=== PATIENT | female | born 1980 | race Two or more races ===

== ENCOUNTER 2017-04-28 00:19 | Emergency (ER) | payer OTHER ==
[~2017-04-28] VITALS: Ht 175.3 cm; Wt 86.2 kg
--- NOTE | 2017-04-28 01:10 | NUR ---
TO BED 4 A 28 YO FEMALE BIBSELF W C/O "EPIGASTRIC PAIN SINCE 2199." DENIES N/V/D. PATIENT IS AAOX4, NAD NOTED. VSS. NONDIAPHORETIC. GOWNED. COMFORT MEASURES RENDERED. AWAITING FOR ER MD SWANSON.
--- NOTE | 2017-04-28 01:20 | NUR ---
STARTED A SALINE LOCK ON THE RAC G20, BLOOD DRAWN AND SENT TO LAB.
[2017-04-28] MEDS ORDERED: ONDANSETRON HCL/PF 4 MG/2 ML VIAL ONE (01:26)
[2017-04-28] MEDS ORDERED: MORPHINE SULFATE INJ 4 MG/ML DISP.SYRIN ONE (01:27)
[2017-04-28] MEDS ORDERED: IV NS 0.9% 1,000 ML BAG IV ONE (01:30)
[2017-04-28] MEDS ORDERED: MORPHINE SULFATE INJ 2 MG/ML DISP.SYRIN IV ONE (01:30)
[2017-04-28] MEDS ORDERED: ONDANSETRON HCL/PF 4 MG/2 ML VIAL IVP ONE (01:30)
[2017-04-28 01:44] LABS: APPEARANCE,URINE CLEAR (CLEAR); BILIRUBIN,URINE NEGATIVE (NEGATIVE); BLOOD, URINE TRACE-INTA Ery/uL (NEGATIVE); COLOR,URINE YELLOW (YELLOW); KETONES,URINE NEGATIVE (NEGATIVE); LEUKOCYTE ESTERASE ,URINE NEGATIVE (NEGATIVE); NITRITE, URINE NEGATIVE (NEGATIVE); PROTEIN,URINE NEGATIVE (NEGATIVE); UGLUCOSE NEGATIVE (NEGATIVE); UROBILINOGEN,URINE 0.2 EU/dL (0.2)
[2017-04-28 01:54] LABS: CALCIUM, SERUM 9.3 mg/dL (8.5-10.1); CARBON DIOXIDE 29 mmol/L (21-32); CHLORIDE 105 mmol/L (98-107); CREATININE 0.7 mg/dL (0.6-1.3); GLUCOSE 93 mg/dL (74-106); POTASSIUM 3.6 mmol/L (3.5-5.1); SODIUM SERUM 141 mmol/L (136-145); UREA NITROGEN, BLOOD 12 mg/dL (7-18)
[2017-04-28 01:57] LABS: INR 0.96 (0.87-1.13); PROTHROMBIN TIME 10.3 SECS (9.5-12.7)
[2017-04-28 01:58] LABS: ALANINE AMINOTRANSFERASE 18 U/L (12-78); ALKALINE PHOSPHATASE 82 U/L (46-116); ASPARTATE AMINOTRANSFERASE 9 U/L (15-37); BILIRUBIN,TOTAL 0.1 mg/dL (0.2-1.0); LIPASE 140 U/L (73-393)
[2017-04-28 01:58] LABS: BACTERIA,URINE None seen /HPF (None Seen); RBC,URINE 0-2 /HPF (0-2); SQUAMOUS EPITHELIAL CELL,UR Few /HPF (None Seen); WBC,URINE 0-2 /HPF (0-3)
[2017-04-28 02:00] LABS: TROPONIN I < 0.017 ng/mL (0.00-0.056)
[2017-04-28 02:04] LABS: BASOPHILS # (AUTO) 0.1 /CMM (0.0-0.2); BASOPHILS % (AUTO) 0.4 % (0.0-2.0); EOSINOPHILS # (AUTO) 0.3 /CMM (0.0-0.7); EOSINOPHILS % (AUTO) 2.2 % (0.0-6.0); HEMATOCRIT 42 % (33-45); HEMOGLOBIN 13.8 g/dL (11.5-14.8); LYMPHOCYTES # (AUTO) 5.7 /CMM (0.8-4.8); LYMPHOCYTES % (AUTO) 37.6 % (20.0-44.0); MEAN CORPUSCULAR HEMOGLOBIN 29 PG (26.0-33.0); MEAN CORPUSCULAR HGB CONC 33 g/dl (31.0-36.0); MEAN CORPUSCULAR VOLUME 88 fL (82-100); MONOCYTES # (AUTO) 0.9 /CMM (0.1-1.30); MONOCYTES % (AUTO) 5.9 % (2.0-12.0); NEUTROPHILS # (AUTO) 8.2 /CMM (1.8-8.9); NEUTROPHILS % (AUTO) 53.9 % (43.0-81.0); PLATELET COUNT (AUTO) 443 /CMM (150-450); RDW COEFFICIENT OF VARIATION 13.9 (11.5-15.0); RED BLOOD CELL COUNT(AUTO) 4.73 MIL/uL (4.0-5.2); WHITE BLOOD COUNT (AUTO) 15.2 K/uL (4.3-11.0)
--- NOTE | 2017-04-28 02:42 | NUR ---
ONGOING LILLIAN AT BEDSIDE.
--- NOTE | 2017-04-28 03:17 | NUR ---
patient reports relief from pain. IV removed. Catheter intact and site benign. Pressure and 4x4 applied to site. No bleeding noted. Patient discharged to home in stable condition. Written and verbal after care instructions given. Patient verbalizes understanding of instruction. Instructed not to drive, family at bedside to take patient home. No further complaints.
[2017-04-28 03:18] VITALS: BP 138/90
== END 2017-04-28 03:18 | disposition home or self-care (01) ==
LOC: ER 00:24
DX: K21.9 Gastro-esophageal reflux disease without esophagitis (principal)
CPT/HCPCS: 36415; 76705; 80048; 80076; 81001; 83690; 84484; 84703; 85025; 85730; 93005; 96361; 96374; 96375; 99285; A4606; J2270; J2405; J7030; Z7610; 81000-TC

== ENCOUNTER 2020-03-09 05:13 | Inpatient (IN) | payer OTHER ==
[~2020-03-09] VITALS: Ht 175.3 cm; Wt 83.9 kg
--- NOTE | 2020-03-09 05:36 | NUR ---
PT BIBSELF C/O BACK PAIN RADIATING TO LLQ ABD PAIN X 2 HRS SHIP RUNNER. PT STATES HX KIDNEY STONES. PT AOX4 RR EVEN AND UNLABORED. NO SOB NOTED. NO NVD AT THIS TIME. PT PLACED ON MONITOR WAITING FOR MD SWANSON. BLOOD WORK/UA COLLECTED. SENT TO LAB
[2020-03-09] MEDS ORDERED: KETOROLAC TROMETHAMINE 15 MG/ML VIAL ONE (05:47)
[2020-03-09] MEDS ORDERED: KETOROLAC TROMETHAMINE INJ 30 MG/ML VIAL IV ONE (06:00)
[2020-03-09] MEDS ORDERED: IV NS 0.9% 1,000 ML BAG IV ONE (06:00)
[2020-03-09 06:01] LABS: APPEARANCE,URINE SL CLOUDY (CLEAR); BILIRUBIN,URINE NEGATIVE (NEGATIVE); BLOOD, URINE LARGE Ery/uL (NEGATIVE); COLOR,URINE YELLOW (YELLOW); KETONES,URINE 15 (NEGATIVE); LEUKOCYTE ESTERASE ,URINE SMALL (NEGATIVE); NITRITE, URINE NEGATIVE (NEGATIVE); PH,URINE 7.5 (5.0-8.0); PROTEIN,URINE 30 mg/dl (NEGATIVE); UGLUCOSE NEGATIVE (NEGATIVE); UROBILINOGEN,URINE 0.2 EU/dL (0.2)
[2020-03-09 06:02] LABS: BASOPHILS % (AUTO) 0.2 % (0.0-2.0); EOSINOPHILS % (AUTO) 0.2 % (0.0-6.0); HEMATOCRIT 40 % (33-45); HEMOGLOBIN 13.3 g/dL (11.5-14.8); LYMPHOCYTES # (AUTO) 2.7 /CMM (0.8-4.8); LYMPHOCYTES % (AUTO) 14.1 % (20.0-44.0); MEAN CORPUSCULAR HGB CONC 34 g/dl (31.0-36.0); MEAN CORPUSCULAR VOLUME 88 fL (82-100); NEUTROPHILS # (AUTO) 15.5 /CMM (1.8-8.9); NEUTROPHILS % (AUTO) 80.5 % (43.0-81.0); PLATELET COUNT (AUTO) 458 /CMM (150-450); RED BLOOD CELL COUNT(AUTO) 4.52 MIL/uL (4.0-5.2); WHITE BLOOD COUNT (AUTO) 19.2 K/uL (4.3-11.0)
--- NOTE | 2020-03-09 06:07 | NUR ---
DR. ECKERT AT BEDSIDE FOR EVAL.
[2020-03-09] MEDS ORDERED: MORPHINE SULFATE INJ 4 MG/ML DISP.SYRIN ONE ×3 (06:15→08:52)
[2020-03-09] MEDS ORDERED: ONDANSETRON HCL/PF 4 MG/2 ML VIAL ONE (06:17)
[2020-03-09] MEDS ORDERED: MORPHINE SULFATE INJ 2 MG/ML DISP.SYRIN IV ONE ×3 (06:30→09:00)
[2020-03-09] MEDS ORDERED: ONDANSETRON HCL/PF 4 MG/2 ML VIAL IV ONE (06:30)
[2020-03-09 06:50] LABS: CREATININE 0.9 mg/dL (0.6-1.3); POTASSIUM 3.4 mmol/L (3.5-5.1)
[2020-03-09] MEDS ORDERED: CEFTRIAXONE 1GM BAG (ER ONLY) 50 ML IV ONE (07:21)
[2020-03-09 07:23] LABS: BACTERIA,URINE Many /HPF (None Seen); CALCIUM OXALATE CRYSTALS,UR Moderate /HPF (None Seen); RBC,URINE 20-30 /HPF (0-2); SQUAMOUS EPITHELIAL CELL,UR Few /HPF (None Seen)
--- NOTE | 2020-03-09 07:23 | NUR ---
report given to esvin james for continuity of care.
--- NOTE | 2020-03-09 07:29 | NUR ---
RECEIVED REPORT FROM DEBBI BRISENO FOR MARICRUZ. PT IS AAOC4, NOT IN RESPIRATORY DISTRESS, V.S STABLE, PER PT STILL IN PAIN 10/10 PAIN MEDS GIVEN PER ER MD, KEPT RESTED AND COMFORTABLE. WILL CONTINUE TO MONITOR.
[2020-03-09] MEDS ORDERED: CEFTRIAXONE 1 G in IV D5W 50 ML IV ONE (07:30)
--- NOTE | 2020-03-09 07:42 | NUR ---
[facility] [phone]
--- NOTE | 2020-03-09 08:02 | NUR ---
COVID SWAB OBTAINED AND SENT TO LAB.
--- NOTE | 2020-03-09 08:07 | NUR ---
MOVE SHEET SUBMITTED TO ADMITTING AND CALLED FOR MS BED.
--- NOTE | 2020-03-09 08:16 | NUR ---
AJAY SEO PROFESSIONAL GAVE VERBAL AUTH TO ADMIT.
--- NOTE | 2020-03-09 08:31 | NUR ---
GOT BED 203
--- NOTE | 2020-03-09 08:38 | NUR ---
report gven to susan mcallister. awaiting transfer to floor.
[2020-03-09] MEDS ORDERED: HYDROMORPHONE 1 MG/1 ML DISP.SYRIN ONE (08:51)
[2020-03-09 09:00] VITALS: BP 120/70
--- NOTE | 2020-03-09 09:00 | NUR ---
MS RN NOTES PATIENT SEEN AND EXAMINED BY DR. VILLARREAL (UROLOGIST) WITH N.O. ENTERED BY MD. PER DR. VILLARREAL, IF PATIENT IS DOING OK, THEN PATIENT CAN GO HOME WITH ATB AND FOLLOW UP WITH UROLOGIST. IF NOT, NPO AT MIDNIGHT AND WILL PUT A STENT IN AM. BUT DR. VILLARREAL WANTS DR. ZAMUDIO TO UPDATE HIM FIRST BY THE END OF THE DAY. DR. ZAMUDIO MADE AWARE.
--- NOTE | 2020-03-09 09:00 | NUR ---
MS RN NOTES RECEIVED PATIENT ALERT AND ORIENTED X4. AMBULATORY WITH STEADY GAIT. NO SOB. DENIES ANY C/O PAIN NOR DISCOMFORT AT THIS TIME DUE TO PAIN MED RECENTLY RECEIVED AT ER. ORIENTED PATIENT TO ROOM ,UNIT, CALL LIGHT. ALL BELONGINGS ACCOUNTED FOR. LEFT AC # 18 INTACT AND PATENT. BED IN LOWEST POSITION, LOCKED. BED ALARM ON. CALL LIGHT WITHIN REACH.
[2020-03-09] MEDS ORDERED: Z GUARD REMEDY 2 OZ OINT TP PRN (09:30)
[2020-03-09] MEDS ORDERED: ZOLPIDEM TARTRATE 5 MG TABLET PO PRN (09:30)
[2020-03-09] MEDS ORDERED: MAGNESIUM HYDROXIDE 30 ML UDC PO PRN (09:30)
[2020-03-09] MEDS ORDERED: HYDROCODONE/APAP 5/325MG TABLET PO PRN (09:30)
[2020-03-09] MEDS ORDERED: MAG HYDROX/AL HYDROX/SIMETH 30 ML UDC PO PRN (09:30)
[2020-03-09] MEDS ORDERED: ONDANSETRON HCL/PF 4 MG/2 ML VIAL IVP PRN (09:30)
[2020-03-09] MEDS ORDERED: MORPHINE SULFATE INJ 2 MG/ML DISP.SYRIN IV PRN (09:30)
[2020-03-09] MEDS ORDERED: CEFTRIAXONE 1 G in IV D5W 50 ML IV SCH (10:00)
[2020-03-09] MEDS: DIAZEPAM 5 MG TABLET PO SCH ×2 (10:35→22:40)
[2020-03-09] MEDS: IV 1/2NS 1000 ML 1,000 ML IV PRN (10:35)
[2020-03-09] MEDS: KETOROLAC TROMETHAMINE INJ 30 MG/ML VIAL IM/IV SCH ×3 (10:47→21:55)
[2020-03-09] MEDS ORDERED: POTASSIUM CHLORIDE 20 MEQ TAB.PRT.SR PO ONE (11:00)
[2020-03-09] MEDS: LEVOFLOXACIN 500 MG /D5W 100ML 500 MG in PREMIX 1 EA IV SCH (11:13)
[2020-03-09 17:55] VITALS: BP 114/77
[2020-03-09] MEDS: ACETAMINOPHEN 325 MG TABLET PO PRN (17:58)
--- NOTE | 2020-03-09 18:33 | NUR ---
MS RN NOTES PATIENT RESTING COMFORTABLY IN BED TALKING TO ON PHONE. NO SOB. DENIES ANY C/O PAIN NOR DISCOMFORT. LEFT AC # 18 INTACT AND PATENT INFUSING 1/2 NS AT 75 ML/HR. BED IN LOWEST POSITION, LOCKED. BED ALARM ON. CALL LIGHT WITHIN REACH. IN NO APPARENT DISTRESS.
[2020-03-09 19:41] VITALS: BP 106/61
--- NOTE | 2020-03-09 19:42 | NUR ---
RECEIVED RENÉEDALY ALERT AND ORIENTATED X4. AMBULATING IN THE ROOM. EXPLAINED TO HER WE NEED TO STRAIN HER URINE EACH TIME SHE VOID. "HAT" PLACED IN THE TOILET. SHE IS REQUISTING TO GO SMOKE, WILL ALOOW HER TO GO WHEN EMERGENCY MEDICINE PHYSICIAN AVAILABLE TO GO WITH HER. DENIES PAIN AT THIS TIME
[2020-03-09 20:09] VITALS: BP 106/61
[2020-03-10] MEDS: ACETAMINOPHEN 325 MG TABLET PO PRN ×2 (02:51→13:32)
[2020-03-10] MEDS: IV 1/2NS 1000 ML 1,000 ML IV PRN (03:00)
[2020-03-10] MEDS: KETOROLAC TROMETHAMINE INJ 30 MG/ML VIAL IM/IV SCH ×3 (03:49→15:28)
[2020-03-10 06:47] LABS: BASOPHILS % (AUTO) 0.2 % (0.0-2.0); EOSINOPHILS % (AUTO) 0.1 % (0.0-6.0); HEMATOCRIT 37 % (33-45); HEMOGLOBIN 12.2 g/dL (11.5-14.8); LYMPHOCYTES # (AUTO) 1.1 /CMM (0.8-4.8); LYMPHOCYTES % (AUTO) 7.2 % (20.0-44.0); MEAN CORPUSCULAR HGB CONC 33 g/dl (31.0-36.0); MEAN CORPUSCULAR VOLUME 90 fL (82-100); MONOCYTES # (AUTO) 0.9 /CMM (0.1-1.30); MONOCYTES % (AUTO) 5.7 % (2.0-12.0); NEUTROPHILS # (AUTO) 13.7 /CMM (1.8-8.9); NEUTROPHILS % (AUTO) 86.8 % (43.0-81.0); PLATELET COUNT (AUTO) 362 /CMM (150-450); RED BLOOD CELL COUNT(AUTO) 4.14 MIL/uL (4.0-5.2); WHITE BLOOD COUNT (AUTO) 15.8 K/uL (4.3-11.0)
[2020-03-10 06:57] LABS: CALCIUM, SERUM 8.6 mg/dL (8.5-10.1); CREATININE 1.1 mg/dL (0.6-1.3); MAGNESIUM 1.8 mg/dL (1.8-2.4); PHOSPHORUS 2.8 mg/dL (2.5-4.9); POTASSIUM 3.4 mmol/L (3.5-5.1)
[2020-03-10 08:00] VITALS: BP 104/55
--- NOTE | 2020-03-10 08:00 | NUR ---
RN NOTES RECEIVED PATIENT IN THE BED RESTING. NO ACUTE RESPIRATORY DISTRESS, V/S TAKEN STABLE, REFUSED PAIN AT THIS TIME. PATIENT NPO FOR POSSIBLE DOUBLE J STAND BECAUSE OF KIDNEY STONE. INFUSING 1/2 NS AT 75 ML/HR ON LEFT AC AREA INTACT. V/S STABLE, PATIENT AMBULATORY SELF CARE. CALL LIGHT WITHIN TO REACH.
--- NOTE | 2020-03-10 09:11 | NUR ---
RN NOTES ESCORTED PATIENT TO THE LOBBY FOR SMOKE, STABLE REFUSED PAIN AT THIS TIME. CONTINUED MONITORING.
[2020-03-10] MEDS ORDERED: CEFTRIAXONE 1 G in IV D5W 50 ML IV SCH (09:30)
[2020-03-10] MEDS: LEVOFLOXACIN 500 MG /D5W 100ML 500 MG in PREMIX 1 EA IV SCH (10:25)
[2020-03-10] MEDS: DIAZEPAM 5 MG TABLET PO SCH (10:31)
[2020-03-10] MEDS ORDERED: POTASSIUM CHLORIDE 20 MEQ TAB.PRT.SR PO ONE (13:00)
--- NOTE | 2020-03-10 13:32 | NUR ---
rn notes administered Tylenol 650 mg po prn for headache.
--- NOTE | 2020-03-10 15:36 | NUR ---
INTERNAL GRINDER NOTES PATIENT DISCHARGE HOME SELF CARE AT THIS TIME, STABLE REFUSED PAIN, V/S WNL. MED RECONCILIATION AND DISCHARGE ORDER REVIEWED AND EXPLAINED TO. PATIENT VERBALIZED UNDERSTANDING, BELONGING WITH THE PATIENT PRESCRIPTION HANDED TO THE PATIENT. PATIENT SIGN PAPERWORK. PATIENT WILL FOLLOW PCP, AND OUTPATIENT UROLOGIST. ESCORTED PATIENT TO THE LOBBY FOR SAFETY. PATIENT AUTO SERVICE DISPATCHER BY .
== END 2020-03-10 16:00 | disposition home or self-care (01) | DRG 720 ==
LOC: ER 05:14 → MEDSG2 08:46
PROVIDERS: ADMIT Student in an Organized Health Care Education/Training Program; ATTEND Student in an Organized Health Care Education/Training Program
DX: A41.9 Sepsis, unspecified organism (principal); N13.2 Hydronephrosis with renal and ureteral calculous obstruction; N39.0 Urinary tract infection, site not specified; E87.1 Hypo-osmolality and hyponatremia; E87.6 Hypokalemia; F17.210 Nicotine dependence, cigarettes, uncomplicated; Z87.442 Personal history of urinary calculi; K76.0 Fatty (change of) liver, not elsewhere classified
CPT/HCPCS: 36415; 80048-TC; 80061-TC; 81000-TC; 83735-TC; 84100-TC; 84703-TC; 85025-TC; 87081-TC; 87086-TC; A4216; G0378; J0696; J1170; J1885; J1956; J2270; J2405; J3490; J7030; J7060